=== PATIENT | female | born 1995 | race Caucasian/White ===

== ENCOUNTER 2017-01-23 12:39 | Inpatient (IN) ==
[2017-01-23] MEDS ORDERED: ONDANSETRON 4 MG/2 ML VIAL IV PRN (13:29)
[2017-01-23] MEDS ORDERED: BUTORPHANOL 2 MG/ML VIAL IV PRN (13:29)
[2017-01-23] MEDS ORDERED: LACTATED RINGERS 1,000 ML IV SCH (13:30)
[2017-01-23] MEDS ORDERED: FAMOTIDINE 20 MG/2 ML VIAL IV ONE (13:40)
[2017-01-23] MEDS ORDERED: diphenhydrAMINE 50 MG/1 ML VIAL IV PRN ×2 (13:40)
[2017-01-23] MEDS ORDERED: hydrOXYzine HCL 25 MG/1 ML VIAL IM PRN (13:40)
[2017-01-23] MEDS ORDERED: ePHEDrine 50 MG/ML AMP IV PRN (13:40)
[2017-01-23] MEDS ORDERED: CITRIC ACID/SODIUM CITRATE 30 ML UDCUP PO ONE (13:40)
[2017-01-23] MEDS ORDERED: PROMETHAZINE 25 MG/1 ML VIAL IM ONE (13:40)
[2017-01-23] MEDS ORDERED: LACTATED RINGERS 1,000 ML IV ONE (13:40)
[2017-01-23] MEDS ORDERED: fentaNYL 2 MCG/ROPIV 0.2% EPID 150 ML EPIDURAL SCH (13:40)
[2017-01-23 13:55] LABS: Basophils % 0.4 % (0.0-0.8); Eosinophils # 0.2 10*3/uL (0.0-0.87); Eosinophils % 2.1 % (0.00-10.9); Hematocrit 31.2 VOL% (35.7-47.0); Hemoglobin 10.2 GM/DL (12.0-16.0); Immature Granulocytes % 0.5 %; Immature Granulocytes Absolute 0.05 #; Lymphocytes # 1.7 10*3/uL (1.4-4.0); Lymphocytes % 18.2 % (21.3-54.2); Mean Corpuscular HGB Conc 32.7 GM/DL (32-36); Mean Corpuscular Hemoglobin 28 PG (27-34); Mean Corpuscular Volume 84.3 FL (87-102); Mean Platelet Volume 10.9 FL (9.6-12.0); Monocytes # 0.6 10*3/uL (0.11-0.8); Monocytes % 6.3 % (1.7-12.7); Neutrophils # 6.9 10*3/uL (1.4-7.4); Neutrophils % 72.5 % (38.7-73.9); Platelet Count 170 T/CUMM (130-400); Red Cell Distribution Width 13.4 % (9.3-17.3); White Blood Count 9.5 T/CUMM (4-12)
[2017-01-23] MEDS ORDERED: PENICILLIN POTASSIUM IV ONE (14:00)
[2017-01-23] MEDS ORDERED: SODIUM CHLORIDE 0.9% IV ONE (14:00)
[2017-01-23 14:17] LABS: Albumin 2.5 G/DL (3.4-5.0); Bilirubin,Total 0.5 MG/DL (0.2-1.0); Calcium 8.3 MG/DL (8.5-10.1); Osmolality,Calculated 274.4 MOS/KG (273-304); Potassium 4.4 MMOL/L (3.5-5.1); Total Protein 5.2 G/DL (6.4-8.3)
[2017-01-23] MEDS ORDERED: OXYTOCIN/LR 20 UNIT/1,000 ML BAG IV SCH (14:30)
[2017-01-23 14:36] LABS: Rubella Antibody IgG 8.2 IU/ML
[2017-01-23 15:03] LABS: HIV Antigen/Antibody Result Nonreactive (Nonreactive); Hepatitis B Surface Ag Quant 0.35 Index; Hepatitis B Surface Ag Result Negative (Negative)
[2017-01-23] MEDS ORDERED: PENICILLIN POTASSIUM IV SCH (18:00)
[2017-01-23] MEDS ORDERED: SODIUM CHLORIDE 0.9% IV SCH (18:00)
[2017-01-23] MEDS ORDERED: ceFAZolin 2,000 MG in PREMIX 1 EACH IV ONE (20:20)
[2017-01-23] MEDS ORDERED: OXYTOCIN/LR 20 UNIT/1,000 ML BAG IV ONE (23:24)
[2017-01-23] MEDS: IBUPROFEN 800 MG TABLET PO PRN (23:27)
[2017-01-24 06:19] LABS: Basophils % 0.4 % (0.0-0.8); Eosinophils # 0.2 10*3/uL (0.0-0.87); Eosinophils % 1.9 % (0.00-10.9); Hematocrit 27.7 VOL% (35.7-47.0); Hemoglobin 9.2 GM/DL (12.0-16.0); Immature Granulocytes % 0.6 %; Immature Granulocytes Absolute 0.06 #; Lymphocytes % 20.3 % (21.3-54.2); Mean Corpuscular HGB Conc 33.2 GM/DL (32-36); Mean Corpuscular Hemoglobin 27 PG (27-34); Mean Corpuscular Volume 82.4 FL (87-102); Mean Platelet Volume 10.8 FL (9.6-12.0); Monocytes # 0.8 10*3/uL (0.11-0.8); Monocytes % 7.8 % (1.7-12.7); Neutrophils # 6.8 10*3/uL (1.4-7.4); Platelet Count 147 T/CUMM (130-400); Red Blood Count 3.36 MC/CUMM (3.8-5.5); Red Cell Distribution Width 13.4 % (9.3-17.3); White Blood Count 9.9 T/CUMM (4-12)
[2017-01-24] MEDS ORDERED: INFLUENZA VIRUS VACCINE 0.5 ML SYRINGE IM ONE (13:25)
[2017-01-24] MEDS: IBUPROFEN 800 MG TABLET PO PRN (18:40)
[2017-01-25] MEDS: IBUPROFEN 800 MG TABLET PO PRN (02:30)
[2017-01-25] MEDS ORDERED: DIPH/TET/ACEL PERT BOOSTER VACCINE 0.5 ML VIAL IM ONE (11:49)
[2017-01-25] MEDS ORDERED: BENZOCAINE 20% SPRAY 57 GM CAN TOP PRN (12:19)
[2017-01-25 14:29] VITALS: BP 119/89
== END 2017-01-25 12:35 | disposition home or self-care (01) | DRG 560 ==
LOC: N.LDOUT 12:39 → N.LD 12:42 → N.OB 20:50
PROVIDERS: ADMIT Obstetrics & Gynecology; ATTEND Obstetrics & Gynecology